=== PATIENT | male | born 1985 | race American Indian/Alaskan Native ===

== ENCOUNTER 2016-09-13 06:12 | Emergency (ER) | payer OTHER ==
[2016-09-13 06:16] VITALS: BMI 20.8
[2016-09-13 06:19] VITALS: BP 130/69; PULSE 74; RESP 18; O2SAT 99
[2016-09-13 07:37] LABS: ADD MANUAL DIFF? NO
[2016-09-13 07:40] LABS: BASO # 0.05 K/mm3 (0.0-2.0); BASO % 0.5 % (0.0-3.0); EOS # 0.5 (0.0-0.7); EOS % 5.9 % (1.5-5.0); GRAN # 6.14 (1.4-6.5); GRAN % 66.5 % (50.0-68.0); HEMATOCRIT 44.7 % (42.0-52.0); LYMPH # 1.8 (1.2-3.4); LYMPH % 19.3 % (22.0-35.0); MEAN CELL VOLUME 87.1 fL (80.0-105.0); MEAN CORPUSCULAR HEMOGLOBIN 29.6 pg (25.0-35.0); MEAN PLATELET VOLUME 9.8 fl (7.0-11.0); MONO # 0.7 (0.1-0.6); MONO % 7.8 % (1.0-6.0); PLATELET COUNT 265 10^3/uL (120.0-450.0); WHITE BLOOD COUNT 9.2 10^3/ul (4.5-11.0)
[2016-09-13 08:02] LABS: ALB/GLOB RATIO 1.4 (1.1-1.8); ALKALINE PHOSPHATASE 50 U/L (38-133); ALT/SGPT 41 U/L (7-56); AST/SGOT 32 U/L (15-59); BILIRUBIN,TOTAL 0.9 mg/dL (0.2-1.3); BLOOD UREA NITROGEN 15 mg/dL (7-21); CALCIUM 9.9 mg/dL (8.4-10.5); CARBON DIOXIDE 28 mmol/L (21-33); CHLORIDE 102 mmol/L (98-107); GFR AFRICAN-AMERICAN > 60; GLUCOSE,RANDOM 83 mg/dL (70-110); POTASSIUM 4.2 mmol/L (3.6-5.0); SODIUM 139 mmol/L (132-148); TOTAL PROTEIN 7.2 g/dL (5.8-8.3)
[2016-09-13 08:15] LABS: TROPONIN I < 0.01 ng/mL
--- NOTE | 2016-09-13 08:26 | ED PDOC ---
Arrival/HPI - General Chief Complaint: Chest Pain Time Seen by Provider: 09/13/16 06:17 Historian: Patient - History of Present Illness Narrative History of Present Illness (Text): 09/13/16 08:00 A 31 year old male presents to the emergency department complaining of chest pain that began overnight (around midnight). Patient describe the pain as being tight. He denies any shortness of breath, fever, cough, recent travel or any other complaints at this time. Patient has never experienced such pain in the past and does not have a family history of cardiac disease. PMD: None Time/Duration: Other (6-12 hours) Symptom Onset: Sudden Symptom Course: Unchanged Quality: Tightness Activities at Onset: Rest Context: Home Past Medical History - Provider Review Nursing Documentation Reviewed: Yes - Psychiatric Hx Substance Use: No - Surgical History Hx Orthopedic Surgery: Yes (left knee) Family/Social History - Physician Review Nursing Documentation Reviewed: Yes Family/Social History: No Known Family HX Smoking Status: Never Smoked Hx Alcohol Use: No Hx Substance Use: No Allergies/Home Meds Allergies/Adverse Reactions: Allergies No Known Allergies Allergy (Verified 09/13/16 06:16) Home Medications: Home Meds Medication Instructions Recorded Confirmed No Known Home Med 09/13/16 09/13/16 Review of Systems - Physician Review All systems were reviewed & negative as marked: Yes - Review of Systems Constitutional: absent: Fevers Respiratory: absent: SOB, Cough Cardiovascular: Chest Pain Physical Exam Vital Signs Reviewed: Yes Vital Signs Pulse Resp BP Pulse Ox 09/13/16 06:19 74 18 130/69 99 Blood Pressure: Normal Pulse: Regular Respiratory Rate: Normal Appearance: Positive for: Well-Appearing, Non-Toxic, Comfortable Pain Distress: None Mental Status: Positive for: Alert and Oriented X 3 - Systems Exam Head: Present: Atraumatic, Normocephalic Pupils: Present: PERRL Extroacular Muscles: Present: EOMI Conjunctiva: Present: Normal Mouth: Present: Moist Mucous Membranes Neck: Present: Normal Range of Motion Respiratory/Chest: Present: Clear to Auscultation, Good Air Exchange. No: Respiratory Distress, Accessory Muscle Use Cardiovascular: Present: Regular Rate and Rhythm, Normal S1, S2. No: Murmurs Abdomen: Present: Normal Bowel Sounds. No: Tenderness, Distention, Peritoneal Signs Back: Present: Normal Inspection Upper Extremity: Present: Normal Inspection. No: Cyanosis, Edema Lower Extremity: Present: Normal Inspection. No: Edema Neurological: Present: GCS=15, CN II-XII Intact, Speech Normal Skin: Present: Warm, Dry, Normal Color. No: Rashes Psychiatric: Present: Alert, Oriented x 3, Normal Insight, Normal Concentration Medical Decision Making ED Course and Treatment: 09/13/16 08:00 Impression: A 31 year old male with chest pain. Differential Diagnosis include but are not limited to: ACS vs. Bronchitis Plan: -- EKG -- Chest X-ray -- Labs -- Reassess and disposition Progress Notes: EKG: Ordered, reviewed, and independently interpreted the EKG. Rate : 68 BPM Rhythm : NSR Interpretation : normal axis, normal intervals Comparison : No previous EKG for comparison. 09/13/16 08:40 Chest X-ray Impression: As read by me, no acute findings. On re-evaluation, the patient is in no acute distress. I have discussed the results and plan with the patient, who expresses understanding. Patient in agreement with plan to discharged home. Patient is stable for discharge. Patient was instructed to follow up with physician/clinic in 1-2 days or return if symptoms worsen or new concerning symptoms arise. 09/13/16 09:28 Chest X-ray: Creator : Eliseo Bartlett MD COMPARISON: No prior. FINDINGS: LUNGS: No active pulmonary disease. PLEURA: No significant pleural effusion identified, no pneumothorax apparent. CARDIOVASCULAR: Normal. OSSEOUS STRUCTURES: No significant abnormalities. VISUALIZED UPPER ABDOMEN: Normal. OTHER FINDINGS: None. IMPRESSION: No active disease. - Lab Interpretations Lab Results: 09/13/16 07:30 09/13/16 07:30 Lab Results 09/13/16 07:30: Sodium 139, Potassium 4.2, Chloride 102, Carbon Dioxide 28, Anion Gap 13, BUN 15, Creatinine 1.1, Est GFR ( Amer) > 60, Est GFR (Non- Af Amer) > 60, Random Glucose 83, Calcium 9.9, Magnesium 2.0, Total Bilirubin 0.9, AST 32, ALT 41, Alkaline Phosphatase 50, Lactate Dehydrogenase 521, Total Creatine Kinase 125, Troponin I < 0.01, Total Protein 7.2, Albumin 4.2, Globulin 3.1, Albumin/Globulin Ratio 1.4 09/13/16 07:30: WBC 9.2, RBC 5.13, Hgb 15.2, Hct 44.7, MCV 87.1, MCH 29.6, MCHC 34.0, RDW 13.0, Plt Count 265, MPV 9.8, Gran % 66.5, Lymph % (Auto) 19.3 L, [place] % (Auto) 7.8 H, Eos % (Auto) 5.9 H, Baso % (Auto) 0.5, Gran # 6.14, Lymph # 1.8, [place] # 0.7 H, Eos # 0.5, Baso # 0.05 I have reviewed the lab results: Yes - RAD Interpretation Radiology Orders: 09/13/16 07:19 CHEST PORTABLE [RAD] Stat - Scribe Statement The provider has reviewed the documentation as recorded by the Scribe Lea Linder Provider Scribe Attestation: All medical record entries made by the Scribe were at my direction and personally dictated by me. I have reviewed the chart and agree that the record accurately reflects my personal performance of the history, physical exam, medical decision making, and the department course for this patient. I have also personally directed, reviewed, and agree with the discharge instructions and disposition. Disposition/Present on Arrival - Present on Arrival Any Indicators Present on Arrival: No History of DVT/PE: No History of Uncontrolled Diabetes: No Urinary Catheter: No History of Decub. Ulcer: No History Surgical Site Infection Following: None - Disposition Have Diagnosis and Disposition been Completed?: Yes Diagnosis: Non-cardiac chest pain Disposition: HOME/ ROUTINE Disposition Time: 08:40 Condition: GOOD Discharge Instructions (ExitCare): Chest Pain (ED), Noncardiac Chest Pain (ED) Additional Instructions: Thank you for letting us take care of you today. Your provider was Dr. Collado. You were treated for non-cardiac chest pain. The emergency medical care you received today was directed at your acute symptoms. If you were prescribed any medication, please fill it and take as directed. It may take several days for your symptoms to resolve. Return to the Emergency Department if your symptoms worsen, do not improve, or if you have any other problems. Please contact your doctor or call one of the physicians/clinics you have been referred to that are listed on the Patient Visit Information form that is included in your discharge packet. Bring any paperwork you were given at discharge with you along with any medications you are taking to your follow up visit. Our treatment cannot replace ongoing medical care by a primary care provider (PCP) outside of the emergency department. Thank you for allowing the [facility] team to be part of your care today. Follow up with the clinic in 3-4 days for re-evaluation. Referrals: [facility], [Non-Staff] - Follow up with primary PCP,NO [Primary Care Provider] - Follow up with primary
--- NOTE | 2016-09-13 09:25 | RAD ---
HISTORY: chest pain COMPARISON: No prior. FINDINGS: LUNGS: No active pulmonary disease. PLEURA: No significant pleural effusion identified, no pneumothorax apparent. CARDIOVASCULAR: Normal. OSSEOUS STRUCTURES: No significant abnormalities. VISUALIZED UPPER ABDOMEN: Normal. OTHER FINDINGS: None. IMPRESSION: No active disease.
--- NOTE | 2016-09-13 15:18 | CARD ---
APPROVED REPORT EKG Measurement Heart [id number] <Conclusion> Normal sinus rhythm RSR' or QR pattern in V1 suggests right ventricular conduction delay Borderline ECG
== END 2016-09-13 09:47 | disposition home or self-care (01) ==
LOC: ED 06:12
DX: R07.89 Other chest pain (principal)

== ENCOUNTER 2016-10-20 21:19 | Emergency (ER) | payer OTHER ==
[2016-10-20 21:20] VITALS: BMI 20.8
[2016-10-20 21:33] VITALS: TEMP 98.1
--- NOTE | 2016-10-20 22:19 | ED PDOC ---
Arrival/HPI <AlannahWillem - Last Filed: 10/20/16 22:42> - General Historian: Patient <Latisha Royal PA-C - Last Filed: 10/21/16 02:21> - General Chief Complaint: Abnormal Skin Integrity Time Seen by Provider: 10/20/16 22:14 - History of Present Illness Narrative History of Present Illness (Text): 10/20/16 22:21 Patient presents to the emergency room after he sustained a laceration to the right forearm prior to arrival. Denies any numbness, decrease in range of motion , foreign body sensation to the wound, active bleeding, or any other injuries. Patient otherwise has no other complaints. (Latisha Royal PA-C) Past Medical History - Provider Review Nursing Documentation Reviewed: Yes - Infectious Disease Hx of Infectious Diseases: None - Tetanus Immunization Tetanus Immunization: Up to Date - Psychiatric Hx Substance Use: No - Surgical History Hx Orthopedic Surgery: Yes (left knee) - Anesthesia Hx Anesthesia: No Hx Anesthesia Reactions: No Hx Malignant Hyperthermia: No <Latisha Royal PA-C - Last Filed: 10/21/16 02:21> Family/Social History - Physician Review Nursing Documentation Reviewed: Yes Family/Social History: No Known Family HX Smoking Status: Never Smoked Hx Alcohol Use: No Hx Substance Use: No <Latisha Royal PA-C - Last Filed: 10/21/16 02:21> Allergies/Home Meds <AlannahWillem - Last Filed: 10/20/16 22:42> <Latisha Royal PA-C - Last Filed: 10/21/16 02:21> Allergies/Adverse Reactions: Allergies No Known Allergies Allergy (Verified 09/13/16 06:16) Home Medications: Home Meds Medication Instructions Recorded Confirmed No Known Home Med 09/13/16 10/20/16 Review of Systems - Review of Systems Constitutional: Normal. absent: Fatigue, Weight Change, Fevers Musculoskeletal: Normal. absent: Arthralgias, Back Pain, Neck Pain Skin: Normal. absent: Rash, Pruritis, Skin Lesions Neurological: Normal. absent: Headache, Dizziness, Focal Weakness <Latisha Royal PA-C - Last Filed: 10/21/16 02:21> Physical Exam Vital Signs Reviewed: Yes Temperature: Afebrile Blood Pressure: Normal Pulse: Regular Respiratory Rate: Normal Appearance: Positive for: Well-Appearing, Non-Toxic, Comfortable Pain Distress: Mild Mental Status: Positive for: Alert and Oriented X 3 - Systems Exam Head: Present: Atraumatic, Normocephalic Neck: Present: Normal Range of Motion. No: MIDLINE TENDERNESS Back: Present: Normal Inspection. No: Midline Tenderness, Paraspinal Tenderness Upper Extremity: Present: Normal Inspection, Normal ROM, NORMAL PULSES, Neurovascularly Intact, Capillary Refill < 2s, Norm 2-Pt Discrimination, Other ( +3 cm laceration to the volar distal R forearm with no FB and no active bleeding ). No: Edema, Tenderness, Swelling, Erythema, Temperature Abnormalties <Latisha Royal PA-C - Last Filed: 10/21/16 02:21> Vital Signs Temp Pulse Resp BP Pulse Ox 10/20/16 23:00 65 18 106/76 98 10/20/16 21:26 98.1 F 63 20 101/66 97 Medical Decision Making <Willem Jaffe - Last Filed: 10/20/16 22:42> <Latisha Royal PA-C - Last Filed: 10/21/16 02:21> ED Course and Treatment: 10/20/16 22:16 31-year-old male presents to the emergency room after he sustained a laceration to the right forearm. Based on physical exam the patient will require laceration repair with sutures. The wound is R forearm. The wound was copiously irrigated with normal saline. The wound was prepped and draped in the normal sterile fashion. The wound was explored for foreign bodies and none were found. The wound was anesthetised using lidocaine. The edges were reapproximated using 3, 5-0 prolene sutures by ZAKI. Bleeding was well controlled and the patient tolerated the procedure well. Patient advised to keep the wound dry for the next 24 hours, however afterwards he can clean with regular soap and water and keep the wound covered with a clean dressing. Patient also advised to have the sutures removed after one week , he was educated on signs and symptoms of infection and to return to the ER anytime if any signs or symptoms of infection develop. Patient states he fully agrees with and understands discharge instructions. States that he agrees with the plan and disposition. Verbalized and repeated discharge instructions and plan. I have given the patient opportunity to ask any additional questions. Follow up with primary care physician or referral physician provided in 1-2 days without fail for wound check and reevaluation. Return to the emergency room at any time for any new or worsening symptoms. (Latisha Royal PA-C) - Medication Orders Current Medication Orders: Discontinued Medications Lidocaine HCl (Lidocaine 2% 20ml Vial) 5 ml IJ ONCE STA Stop: 10/20/16 22:23 - PA / EKG MANAGER / Resident Statement JES has reviewed & agrees with the documentation as recorded. JES has examined the patient and agrees with the treatment plan. <Willem Jaffe - Last Filed: 10/20/16 22:42> - PA / EKG MANAGER / Resident Statement JES has reviewed & agrees with the documentation as recorded. <Latisha Royal PA-C - Last Filed: 10/21/16 02:21> Disposition/Present on Arrival <Willem Jaffe - Last Filed: 10/20/16 22:42> - Present on Arrival Any Indicators Present on Arrival: No History of DVT/PE: No History of Uncontrolled Diabetes: No Urinary Catheter: No History of Decub. Ulcer: No History Surgical Site Infection Following: None - Disposition Have Diagnosis and Disposition been Completed?: Yes Disposition Time: 22:15 Patient Plan: Discharge <Latisha Royal PA-C - Last Filed: 10/21/16 02:21> - Disposition Diagnosis: Forearm laceration Disposition: HOME/ ROUTINE Condition: STABLE Discharge Instructions (ExitCare): Care For Your Stitches (ED), Laceration (ED) Print Language: CHADIAN Additional Instructions: Thank you for letting us take care of you today. You were treated for forearm laceration. The emergency medical care you received today was directed at your acute symptoms. Have your sutures removed after one week. Return to the Emergency Department if your symptoms worsen, do not improve, or if you have any other problems. Please contact your doctor in 2 days for re-evaluation and follow up / or call one of the physicians/clinics you have been referred to that are listed on the Patient Visit Information form that is included in your discharge packet. Bring any paperwork you were given at discharge with you along with any medications you are taking to your follow up visit. Our treatment cannot replace ongoing medical care by a primary care provider (PCP) outside of the emergency department. Thank you for allowing the [facility] team to be part of your care today. Referrals: Stephon Longo MD [Staff Provider] - Follow up with primary Forms: WORK NOTE
[2016-10-20] MEDS ORDERED: Lidocaine 2% Inj (20ml) IJ STA (22:22)
[2016-10-20 23:08] VITALS: BP 106/76; PULSE 65; RESP 18; O2SAT 98
== END 2016-10-20 23:00 | disposition home or self-care (01) ==
LOC: ED 21:19
DX: S51.811A Laceration without foreign body of right forearm, initial encounter (principal); W22.8XXA Striking against or struck by other objects, initial encounter; Y93.89 Activity, other specified; Y92.89 Other specified places as the place of occurrence of the external cause